=== PATIENT | male | born 1985 | race Caucasian/White ===

== ENCOUNTER 2017-04-19 01:03 | Emergency (ER) | payer BC ==
--- NOTE | ~2017-04-19 | EKG ---
PATIENT: PETROS REYES UNIT #: [id number] Ventricular Rate: 78 BPM Atrial Rate: 78 BPM P-R Interval: 142 ms QRS Duration: 86 ms Q-T Interval: 372 ms QTC Calculation(Bezet): 424 ms P Willard: 34 degrees Calculated R Willard: 37 degrees Calculated T Willard: 43 degrees Diagnosis Line: Normal sinus rhythm Diagnosis Line: Normal ECG Diagnosis Line: No previous ECGs available Diagnosis Line: Confirmed by ROMAIN HUA MD ([id number]) on 04/20/2017 Diagnosis Line: 4:55:41 PM INTERPRETING MD: JAVID OSMAN
[~2017-04-19 01:03] MED LIST: ERYTHROMYCIN O3.5 G1 OD; FAMVIR500 M1 PO; KEFLEX500 M2 PO; NAPROXEN PO; NO MEDICATIONS; PHENERGAN DM1 ML PO; PREDNISONE PO; TAMIFLU75 M1 PO; ZITHROMAX PO
[2017-04-19 01:55] LABS: BASOPHIL# 0.1 X10e3 (0-0.3); BASOPHIL% 0.6 % (0-2.5); EOSINOPHIL# 0.1 X10e3 (0-0.7); EOSINOPHIL% 1.3 % (0.0-7.0); HEMATOCRIT 48.4 % (38.0-50.0); HEMOGLOBIN 16.6 gm/dL (13.0-16.0); LYMPHOCYTE# 2.4 X10e3 (1.0-3.5); MEAN CELL VOLUME 87.8 FL (83-96); MEAN CORPUSCULAR HEMOGLOBIN 30.2 PG (28-34); MEAN CORPUSCULAR HGB CONC 34.4 g/dL (30-36); MEAN PLATELET VOLUME 7.8 FL (6.5-11.5); MONOCYTE# 0.9 X10e3 (0-1.0); MONOCYTE% 10.2 % (3.0-12.0); NEUTROPHIL# 5.5 X10e3 (1.5-7.1); NEUTROPHIL% 60.9 % (40-75); PLATELET COUNT 248 X10e3 (140-420); RED BLOOD COUNT 5.51 X10e (3.90-5.60)
[2017-04-19 02:09] LABS: DIFF IND NO
[2017-04-19 02:16] LABS: ALBUMIN SERUM 4.4 g/dL (3.5-5.0); BILIRUBIN, DIRECT 0.2 mg/dL (0.0-0.2); BILIRUBIN,INDIRECT 0.8 mg/dL (0.0-0.9); BUN/CREATININE RATIO 21.25; CALCIUM SERUM 8.9 mg/dL (8.4-10.2); CREATININE SERUM 0.8 mg/dL (0.6-1.4); GLOM FILT RATE Estimated 116.6 mL/min (>60); PROTEIN TOTAL SERUM 7.4 g/dL (6.0-8.3)
[2017-04-19 04:05] LABS: POC - TROPONIN <0.05 ng/mL (<=0.05)
[2017-04-19 05:17] LABS: URINE SOURCE CLEAN CATCH
[2017-04-19 05:31] LABS: URINE APPEARANCE TURBID; URINE BILIRUBIN NEG (NEG); URINE BLOOD NEG (NEG); URINE COLOR YELLOW; URINE GLUCOSE NEG (NEG); URINE KETONE NEG (NEG); URINE LEUKOCYTE ESTERASE NEG (NEG); URINE NITRATE NEG (NEG); URINE PROTEIN NEG (NEG); URINE SPECIFIC GRAVITY 1.024 (1.003-1.035); URINE UROBILINOGEN 0.2 MG/DL (NEG)
[2017-04-19 05:37] LABS: CULTURE INDICATED? NO
== END 2017-04-19 05:55 | disposition home or self-care (01) ==
LOC: CED 01:03
PROVIDERS: Emergency Medicine
DX: R10.84 Generalized abdominal pain (principal); E86.0 Dehydration; M62.82 Rhabdomyolysis; Z79.899 Other long term (current) drug therapy; Z88.5 Allergy status to narcotic agent
CPT/HCPCS: 36415; 80048; 80076; 81003; 82150; 82550; 82553; 83690; 84484; 85025; 93005; 96360; 96361; 99284